=== PATIENT | male | born 1970 | race Caucasian/White ===

== ENCOUNTER 2023-02-14 12:25 | Emergency (ER) | payer MEDICARE, MEDICAID ==
[~2023-02-14] VITALS: Ht 172.7 cm; Wt 87.5 kg
[2023-02-14 12:54] VITALS: BP 140/78; PULSE 79; TEMP 98; O2SAT 100
[2023-02-14] MEDS ORDERED: LIDOcaine Viscous 15ml cup MM ONE (14:00)
[2023-02-14] MEDS ORDERED: ketorolac trometh. 30mg/ml inj. IM ONE (14:00)
[2023-02-14 14:33] VITALS: RESP 18
== END 2023-02-14 14:49 | disposition home or self-care (01) ==
LOC: ER 12:26
DX: K12.30 Oral mucositis (ulcerative), unspecified (principal)
CPT/HCPCS: 96372; 99283; J1885

== ENCOUNTER 2023-05-11 19:09 | Emergency (ER) | payer MEDICARE, MEDICAID ==
[~2023-05-11] VITALS: Ht 170.2 cm; Wt 80.9 kg
[2023-05-11 21:43] VITALS: BP 121/79; PULSE 60; RESP 16; TEMP 97.7; O2SAT 97
== END 2023-05-11 21:46 | disposition home or self-care (01) ==
LOC: ER 19:10
DX: T45.2X1A Poisoning by vitamins, accidental (unintentional), initial encounter (principal); R07.89 Other chest pain; M19.90 Unspecified osteoarthritis, unspecified site; R10.12 Left upper quadrant pain; Y92.89 Other specified places as the place of occurrence of the external cause
CPT/HCPCS: 99281